=== PATIENT | female | born 1945 | race Caucasian/White ===

== ENCOUNTER 2022-11-25 12:14 | Inpatient (IN) | payer MEDICARE, MEDICAID ==
[~2022-11-25] VITALS: Ht 152.4 cm; Wt 63.0 kg
[~2022-11-25 12:14] MED LIST: ALBU18HF2 IH; AMLO10TA80 PO; APIX5TAB PO; FLUT1DIS3 INH; LISI20TA31 PO; NICO-681 TD
[2022-11-25 14:20] LABS: BASOPHILS % 0.5 % (0.0-2.0); EOSINOPHILS % 1.9 % (0.0-5.0); HEMATOCRIT. 36.2 % (36.0-48.0); HEMOGLOBIN. 11.3 g/dL (12.0-16.0); LYMPHOCYTES % 12.2 % (20.0-50.0); MEAN CORPUSCULAR HEMOGLOBIN 26.3 pg (28.0-32.0); MEAN CORPUSCULAR VOLUME 83.9 fL (81.0-99.0); MEAN PLATELET VOLUME 9.4 fl (7.4-10.4); NEUTROPHILS % 77.4 % (40.0-76.0); PLATELET 212 x1000/uL (130-400); RED BLOOD CELL COUNT 4.31 mill/uL (4.2-5.4); RED CELL DISTRIBUTION WIDTH 17.9 % (11.6-14.6)
[2022-11-25 14:22] LABS: CHLORIDE 109 mEq/L (98-107)
[2022-11-25 18:00] VITALS: BP 148/70
[2022-11-25] MEDS ORDERED: DOCUSATE SODIUM 100MG CAPSULE PO PRN (18:30)
[2022-11-25] MEDS ORDERED: MAGNESIUM/ALUMINUM HYDROXIDE/SIMETHICONE 30ML UDC PO PRN (18:30)
[2022-11-25] MEDS ORDERED: CLONIDINE 0.1MG TABLET PO PRN (18:30)
[2022-11-25] MEDS ORDERED: IPRATROPIUM/ALBUTEROL 0.5-3(2.5)MG/3ML NEB HHN PRN (18:30)
[2022-11-25] MEDS ORDERED: GUAIFENESIN 200MG/10ML SUGAR FREE UDC PO PRN (18:30)
[2022-11-25] MEDS ORDERED: ALBUTEROL 6.7GM HFA INHALER INH PRN (18:45)
[2022-11-25] MEDS ORDERED: MEDICATION NOT ON FORMULARY EA (Fluticasone/Salmeterol (Advair 250-50 Diskus) 1 PUFF) INH SCH (18:45)
[2022-11-25] MEDS ORDERED: IPRATROPIUM BROMIDE (0.02%) 0.5MG/2.5ML NEB HHN PRN (19:00)
[2022-11-25] MEDS ORDERED: ALBUTEROL (0.083%) 2.5MG/3ML NEB HHN PRN (19:00)
[2022-11-25 20:00] VITALS: BP 137/87
[2022-11-25] MEDS: NICOTINE 14MG PATCH TD SCH (21:02)
[2022-11-25] MEDS: ENOXAPARIN 40MG/0.4ML SYR SUBCUT SCH (21:03)
[2022-11-25 22:12] LABS: PHOSPHORUS 2.5 mg/dL (2.5-4.9)
[2022-11-25 23:04] LABS: VITAMIN B12 SERUM 1125 pg/mL (211-911)
[2022-11-26 04:00] VITALS: BP 155/84
[2022-11-26 08:00] VITALS: BP 139/80
[2022-11-26] MEDS: BUDESONIDE 0.5MG/2ML NEB HHN SCH ×2 (08:21→21:35)
[2022-11-26] MEDS: ALBUTEROL (0.083%) 2.5MG/3ML NEB HHN SCH ×3 (08:21→21:35)
[2022-11-26] MEDS: NICOTINE 14MG PATCH TD SCH (09:15)
[2022-11-26] MEDS: AMLODIPINE 10MG TABLET PO SCH (09:15)
[2022-11-26] MEDS: FAMOTIDINE 20MG/2ML VIAL IV SCH (09:16)
[2022-11-26] MEDS ORDERED: REGADENOSON 0.4 MG/5 ML IV NR (10:00)
[2022-11-26] MEDS: CLOPIDOGREL 75MG TABLET PO SCH (11:08)
[2022-11-26 20:00] VITALS: BP 160/84
[2022-11-26] MEDS: LIDOCAINE 5% PATCH TOP PRN (20:20)
[2022-11-26] MEDS: ENOXAPARIN 40MG/0.4ML SYR SUBCUT SCH (20:20)
[2022-11-27] VITALS: BP 98/56
[2022-11-27 04:00] VITALS: BP 109/56
[2022-11-27 06:30] LABS: BASOPHILS % 0.4 % (0.0-2.0); EOSINOPHILS % 3.2 % (0.0-5.0); HEMATOCRIT. 33.5 % (36.0-48.0); HEMOGLOBIN. 10.6 g/dL (12.0-16.0); LYMPHOCYTES % 14.1 % (20.0-50.0); MEAN CORPUSCULAR HEMOGLOBIN 26.4 pg (28.0-32.0); MEAN CORPUSCULAR VOLUME 83.4 fL (81.0-99.0); MEAN PLATELET VOLUME 9.2 fl (7.4-10.4); MONOCYTES % 10.5 % (2.0-8.0); NEUTROPHILS % 71.8 % (40.0-76.0); PLATELET 196 x1000/uL (130-400); RED BLOOD CELL COUNT 4.01 mill/uL (4.2-5.4); RED CELL DISTRIBUTION WIDTH 17.9 % (11.6-14.6)
[2022-11-27 07:38] LABS: CHLORIDE 108 mEq/L (98-107)
[2022-11-27 07:51] LABS: CREATINE KINASE 37 IU/L (26-192); CREATINE KINASE MB FRACTION < 1.0 ng/mL (0.5-3.6); HDL CHOLESTEROL 55 mg/dL (40-59); LDL CHOLESTEROL 60 mg/dL (5-100); T4 FREE 0.97 ng/dL (0.76-1.46)
[2022-11-27 08:00] VITALS: BP 129/74
[2022-11-27] MEDS: AMLODIPINE 10MG TABLET PO SCH (08:58)
[2022-11-27] MEDS: CLOPIDOGREL 75MG TABLET PO SCH (08:58)
[2022-11-27] MEDS: FAMOTIDINE 20MG/2ML VIAL IV SCH ×2 (09:00→10:25)
[2022-11-27] MEDS: ALBUTEROL (0.083%) 2.5MG/3ML NEB HHN SCH ×3 (10:10→20:51)
[2022-11-27] MEDS: BUDESONIDE 0.5MG/2ML NEB HHN SCH ×2 (10:10→20:51)
[2022-11-27] MEDS: NICOTINE 14MG PATCH TD SCH (10:26)
[2022-11-27 12:00] VITALS: BP_SYST 113; BP_SYST 132; BP_SYST 133; BP_DIAS 65; BP_DIAS 80; BP_DIAS 83
[2022-11-27] MEDS: ONDANSETRON HCL 4MG/2ML INJ IV PRN (13:09)
[2022-11-27 16:00] VITALS: BP 120/67
[2022-11-27 20:00] VITALS: BP 111/60
[2022-11-27] MEDS: ENOXAPARIN 40MG/0.4ML SYR SUBCUT SCH (20:03)
[2022-11-27] MEDS: LIDOCAINE 5% PATCH TOP PRN (20:07)
[2022-11-28] VITALS (7 sets, daily range): BP systolic 102–125; BP diastolic 46–80
[2022-11-28] MEDS: ALBUTEROL (0.083%) 2.5MG/3ML NEB HHN SCH ×3 (01:00→21:00)
[2022-11-28 05:31] LABS: HEMATOCRIT 33.4 % (36.0-48.0); HEMOGLOBIN 10.7 g/dL (12.0-16.0); MEAN CORPUSCULAR HEMOGLOBIN 26.8 pg (28.0-32.0); MEAN CORPUSCULAR VOLUME 83.6 fL (81.0-99.0); PLATELET 200 x1000/uL (130-400); RED BLOOD CELL COUNT 3.99 mill/uL (4.2-5.4); RED CELL DISTRIBUTION WIDTH 18.1 % (11.6-14.6)
[2022-11-28 06:01] LABS: FERRITIN 24 ng/mL (10-291)
[2022-11-28 06:18] LABS: CHLORIDE 108 mEq/L (98-107)
[2022-11-28 06:31] LABS: PHOSPHORUS 3.6 mg/dL (2.5-4.9); TOTAL IRON BINDING CAPACITY 294 ug/dL (250-450)
[2022-11-28] MEDS: AMLODIPINE 10MG TABLET PO SCH (08:18)
[2022-11-28] MEDS: CLOPIDOGREL 75MG TABLET PO SCH (08:18)
[2022-11-28] MEDS: FAMOTIDINE 20MG/2ML VIAL IV SCH (08:26)
[2022-11-28] MEDS: NICOTINE 14MG PATCH TD SCH (08:27)
[2022-11-28] MEDS: BUDESONIDE 0.5MG/2ML NEB HHN SCH ×2 (14:00→21:00)
[2022-11-28 15:39] LABS: PROTHROMBIN TIME 10.4 sec (9.6-11.0)
[2022-11-28] MEDS: ENOXAPARIN 40MG/0.4ML SYR SUBCUT SCH ×2 (20:00→21:04)
[2022-11-28] MEDS: LIDOCAINE 5% PATCH TOP PRN (21:12)
[2022-11-29] VITALS: BP 149/86
[2022-11-29] MEDS: ALBUTEROL (0.083%) 2.5MG/3ML NEB HHN SCH ×3 (01:02→14:35)
[2022-11-29 04:00] VITALS: BP 128/65
[2022-11-29 08:00] VITALS: BP 120/61
[2022-11-29] MEDS: BUDESONIDE 0.5MG/2ML NEB HHN SCH (08:42)
[2022-11-29] MEDS: ONDANSETRON HCL 4MG/2ML INJ IV PRN (09:28)
[2022-11-29] MEDS: CLOPIDOGREL 75MG TABLET PO SCH (09:28)
[2022-11-29] MEDS: FAMOTIDINE 20MG/2ML VIAL IV SCH (09:28)
[2022-11-29] MEDS: AMLODIPINE 10MG TABLET PO SCH (09:29)
[2022-11-29] MEDS: NICOTINE 14MG PATCH TD SCH (10:48)
[2022-11-29 12:00] VITALS: BP 116/58
[2022-11-29 15:24] VITALS: BP 120/61
== END 2022-11-29 16:15 | disposition home or self-care (01) | DRG 918 ==
LOC: ER 12:14 → 7EST 15:14 → EDBEDREQTM 15:22 → EDBEDREQ 15:22 → ENRESERV 17:00 → 7EST 18:39
PROVIDERS: ADMIT Internal Medicine; ATTEND Internal Medicine
DX: T40.5X1A Poisoning by cocaine, accidental (unintentional), initial encounter (principal); I25.110 Atherosclerotic heart disease of native coronary artery with unstable angina pectoris; D64.9 Anemia, unspecified; I10 Essential (primary) hypertension; J45.909 Unspecified asthma, uncomplicated; Z96.642 Presence of left artificial hip joint; T40.5X5A Adverse effect of cocaine, initial encounter; N28.1 Cyst of kidney, acquired; E78.5 Hyperlipidemia, unspecified; F19.10 Other psychoactive substance abuse, uncomplicated; F12.10 Cannabis abuse, uncomplicated; F17.210 Nicotine dependence, cigarettes, uncomplicated; Z79.02 Long term (current) use of antithrombotics/antiplatelets; I25.2 Old myocardial infarction; Z59.00 Homelessness unspecified; Z85.528 Personal history of other malignant neoplasm of kidney; Z88.6 Allergy status to analgesic agent; Z90.5 Acquired absence of kidney; Z91.14 Patient's other noncompliance with medication regimen; Z95.5 Presence of coronary angioplasty implant and graft; Z79.01 Long term (current) use of anticoagulants; Z79.51 Long term (current) use of inhaled steroids; Z88.8 Allergy status to other drugs, medicaments and biological substances; Z79.899 Other long term (current) drug therapy; Y92.89 Other specified places as the place of occurrence of the external cause
CPT/HCPCS: 36415; 71045; 76770; 80048; 80053; 80061; 82550; 82553; 82607; 82652; 82728; 82746; 83036; 83540; 83550; 83735; 83880; 84100; 84439; 84443; 84484; 85025; 85027; 85379; 93005; 93306; 94640; 99285; C1893; J1650; J2405; J3490; J7626

== ENCOUNTER 2023-05-03 16:21 | Emergency (ER) | payer MEDICARE, MEDICAID ==
[~2023-05-03] VITALS: Ht 157.5 cm; Wt 55.0 kg
[2023-05-03 16:33] VITALS: O2SAT 96
[2023-05-03] MEDS ORDERED: SODIUM CHLORIDE 0.9% 500 ML IV ONE (16:45)
[2023-05-03] MEDS ORDERED: ONDANSETRON HCL 4MG/2ML INJ IV ONE (16:45)
[2023-05-03] MEDS ORDERED: FAMOTIDINE 20MG/2ML VIAL IV ONE (16:45)
[2023-05-03] MEDS ORDERED: KETOROLAC 30MG/ML VIAL IV ONE (17:00)
[2023-05-03] MEDS ORDERED: DIPHENHYDRAMINE 50MG/ML VIAL IV ONE (17:00)
[2023-05-03] MEDS ORDERED: DIPHENHYDRAMINE 50MG/ML VIAL IV NR (17:00)
[2023-05-03] MEDS ORDERED: KETOROLAC 30MG/ML VIAL IV NR (17:00)
[2023-05-03 17:44] LABS: BASOPHILS % 0.4 % (0.0-2.0); EOSINOPHILS % 1.4 % (0.0-5.0); HEMOGLOBIN. 11.9 g/dL (12.0-16.0); LYMPHOCYTES % 12.1 % (20.0-50.0); MEAN CORPUSCULAR HEMOGLOBIN 29.2 pg (28.0-32.0); MEAN CORPUSCULAR VOLUME 88.3 fL (81.0-99.0); MEAN PLATELET VOLUME 8.9 fl (7.4-10.4); MONOCYTES % 6.4 % (2.0-8.0); NEUTROPHILS % 79.7 % (40.0-76.0); PLATELET 191 x1000/uL (130-400); RED BLOOD CELL COUNT 4.08 mill/uL (4.2-5.4); RED CELL DISTRIBUTION WIDTH 18.4 % (11.6-14.6)
[2023-05-03 17:52] LABS: INR 1.1; PROTHROMBIN TIME 11.3 sec (9.6-11.0)
[2023-05-03 17:54] LABS: CHLORIDE 111 mEq/L (98-107)
[2023-05-03 18:03] LABS: ETHANOL BLOOD < 10 mg/dL (-10)
[2023-05-03 20:00] VITALS: BP 128/72; PULSE 77; RESP 12; TEMP 98.9
== END 2023-05-03 20:27 | disposition home or self-care (01) ==
LOC: ER 16:21
DX: R07.89 Other chest pain (principal); I25.2 Old myocardial infarction; I10 Essential (primary) hypertension; Z88.6 Allergy status to analgesic agent; Z88.8 Allergy status to other drugs, medicaments and biological substances; Z88.0 Allergy status to penicillin; Z79.899 Other long term (current) drug therapy; Z98.890 Other specified postprocedural states
CPT/HCPCS: 80053; 80320; 83690; 85025; 85610; 84484; 36415; 71045; 96361; 96374; 96375; 99284; J1200; J3490; J1885; J2405; J7040; G0480

== ENCOUNTER 2023-05-04 16:24 | Emergency (ER) | payer MEDICARE, MEDICAID ==
[~2023-05-04] VITALS: Ht 167.6 cm; Wt 55.0 kg
[2023-05-04 16:37] VITALS: BP 138/70; PULSE 82; RESP 14; TEMP 97.9; O2SAT 97
[2023-05-04 17:05] LABS: BASOPHILS % 0.2 % (0.0-2.0); HEMATOCRIT. 38.5 % (36.0-48.0); HEMOGLOBIN. 12.4 g/dL (12.0-16.0); LYMPHOCYTES % 15.3 % (20.0-50.0); MEAN CORPUSCULAR VOLUME 90.3 fL (81.0-99.0); MONOCYTES % 8.6 % (2.0-8.0); NEUTROPHILS % 72.9 % (40.0-76.0); PLATELET 188 x1000/uL (130-400); RED BLOOD CELL COUNT 4.26 mill/uL (4.2-5.4); RED CELL DISTRIBUTION WIDTH 18.1 % (11.6-14.6)
[2023-05-04 17:26] LABS: CHLORIDE 107 mEq/L (98-107)
[2023-05-04 17:35] LABS: ETHANOL BLOOD < 10 mg/dL (-10)
== END 2023-05-04 17:07 | disposition left against medical advice (07) ==
LOC: ER 16:24
DX: R07.89 Other chest pain (principal); I25.2 Old myocardial infarction; I10 Essential (primary) hypertension; Z59.00 Homelessness unspecified; Z88.6 Allergy status to analgesic agent; Z88.0 Allergy status to penicillin; Z88.8 Allergy status to other drugs, medicaments and biological substances; Z79.899 Other long term (current) drug therapy; Z98.890 Other specified postprocedural states
CPT/HCPCS: 36415; 80053; 80307; 80320; 80329; 83880; 84484; 85025; 93005; 99284; G0480

== ENCOUNTER 2023-05-04 18:16 | Emergency (ER) | payer MEDICARE, MEDICAID ==
[~2023-05-04] VITALS: Ht 149.9 cm; Wt 59.0 kg
[2023-05-04 18:27] VITALS: BP 125/81; PULSE 84; RESP 16; TEMP 98.6; O2SAT 98
== END 2023-05-05 03:34 | disposition left against medical advice (07) ==
LOC: ER 18:16
DX: Z53.21 Procedure and treatment not carried out due to patient leaving prior to being seen by health care provider (principal)
CPT/HCPCS: 99281

== ENCOUNTER 2023-05-05 03:30 | Emergency (ER) | payer MEDICARE, MEDICAID ==
[~2023-05-05] VITALS: Ht 160 cm; Wt 70.0 kg
[2023-05-05 03:32] VITALS: BP 137/83; PULSE 83; RESP 18; TEMP 98.9; O2SAT 99
== END 2023-05-05 05:47 | disposition left against medical advice (07) ==
LOC: ER 03:30
DX: R07.89 Other chest pain (principal); I25.2 Old myocardial infarction; I10 Essential (primary) hypertension; Z53.21 Procedure and treatment not carried out due to patient leaving prior to being seen by health care provider; Z88.6 Allergy status to analgesic agent; Z88.0 Allergy status to penicillin; Z98.890 Other specified postprocedural states
CPT/HCPCS: 71045; 93005; 99283

== ENCOUNTER 2023-05-22 07:50 | Emergency (ER) | payer MEDICARE, MEDICAID ==
[~2023-05-22] VITALS: Ht 157.5 cm; Wt 60.0 kg
[2023-05-22 07:53] VITALS: BP 136/79; PULSE 78; RESP 16; TEMP 98.4; O2SAT 98
== END 2023-05-22 09:33 | disposition left against medical advice (07) ==
LOC: ER 08:15
DX: Z53.21 Procedure and treatment not carried out due to patient leaving prior to being seen by health care provider (principal)
CPT/HCPCS: 93005; 99281; 99283